=== PATIENT | male | born 2000 | race Caucasian/White ===

== ENCOUNTER 2019-12-10 21:26 | Emergency (ER) | payer OTHER ==
[~2019-12-10] VITALS: Ht 177.8 cm; Wt 119.8 kg
[2019-12-10] MEDS ORDERED: ANUSOL-HC25 MG RECTAL (23:47)
[2019-12-10] MEDS ORDERED: LIDOCAINE 2%2 %/5 GM TOP (23:47)
[2019-12-11 00:07] VITALS: BP 161/95
== END 2019-12-11 00:08 | disposition home or self-care (01) ==
LOC: ER 21:26
DX: K64.4 Residual hemorrhoidal skin tags (principal); R19.7 Diarrhea, unspecified; F17.210 Nicotine dependence, cigarettes, uncomplicated